=== PATIENT | female | born 1960 | race Caucasian/White ===

== ENCOUNTER → 2020-10-29 13:51 | Outpatient (BNVA) | payer OTHER, SELFPAY | PROVIDERS: PCP Nurse Practitioner Family; Visit Provider Student in an Organized Health Care Education/Training Program ==

== ENCOUNTER → 2020-11-28 16:26 | Outpatient (BNVA) | payer OTHER, SELFPAY | PROVIDERS: PCP Internal Medicine; Visit Provider Student in an Organized Health Care Education/Training Program ==

== ENCOUNTER 2021-07-27 13:00 | Outpatient (REF) | payer OTHER, SELFPAY ==
[2021-07-27 13:16] VITALS: BMI 25.7
[2021-07-27 13:17] VITALS: BP 143/90; PULSE 75; RESP 16; TEMP 531.1; TEMP 988; O2SAT 97
== END 2021-07-27 13:01 | disposition home or self-care (01) ==
LOC: HO.MS 13:00
PROVIDERS: Visit Provider Ophthalmology
PROC: (CPT 66821; principal; 2021-07-27 14:10)
DX: H26.492 Other secondary cataract, left eye (principal); H11.32 Conjunctival hemorrhage, left eye; Z96.1 Presence of intraocular lens; K21.9 Gastro-esophageal reflux disease without esophagitis; Z88.1 Allergy status to other antibiotic agents; Z79.899 Other long term (current) drug therapy
CPT/HCPCS: 66821

== ENCOUNTER 2022-10-11 12:22 | Outpatient (REF) | payer OTHER, SELFPAY ==
[2022-10-11 12:31] VITALS: BMI 24.1
[2022-10-11 12:33] VITALS: BP 114/72; PULSE 76; RESP 16; TEMP 36.4; O2SAT 95
== END 2022-10-11 12:23 | disposition home or self-care (01) ==
LOC: HO.MS 12:22
PROVIDERS: PCP Internal Medicine; Visit Provider Ophthalmology
PROC: (CPT 66821; principal; 2022-10-11 14:10)
DX: H26.491 Other secondary cataract, right eye (principal)
CPT/HCPCS: 66821